=== PATIENT | male | born 1995 | race Caucasian/White ===

== ENCOUNTER 2016-11-06 18:47 | Emergency (ER) | payer MEDICAID ==
[~2016-11-06] VITALS: Ht 177.8 cm; Wt 89.8 kg
[~2016-11-06 18:47] MED LIST: ATIVAN0.5 MG PO; PREDNISONE1 MG PO
[2016-11-06 20:01] VITALS: BP 115/74
[2016-11-06] MEDS ORDERED: IBUPROFEN 800 MG TAB ONE (20:09)
[2016-11-06] MEDS ORDERED: ACETAMINOPHEN EXTRA STRENGTH 500 MG TAB ONE (20:10)
--- NOTE | 2016-11-06 21:12 | NUR ---
PT TAKEN TO BED 8
[2016-11-06] MEDS ORDERED: ONDANSETRON 4 MG ODT PO ONE (21:15)
--- NOTE | 2016-11-06 21:20 | NUR ---
PATIENT PRESENTS TO ED WITH ABD PAIN, HERNANDEZ, EARACHE, AND N/V/D . PT STATES HE HAS HAD THESE SYMPTOMS X2DAYS; HYPERACTIVE BOWEL SOUNDS NOTED IN ALL FOUR QUADRANTS. SKIN IS PINK/WARM/DRY; AAOX4 WITH EVEN AND STEADY GAIT; LUNGS CLEAR BL; HR EVEN AND REGULAR; PT DENIES ANY FEVER, CP, SOB, OR COUGH AT THIS TIME; PATIENT STATES PAIN OF 8/10 AT THIS TIME; VSS; PATIENT POSITIONED FOR COMFORT; HOB ELEVATED; BEDRAILS UP X2; BED DOWN. ER MD MADE AWARE OF PT STATUS.
[2016-11-06 22:17] VITALS: BP 118/67
--- NOTE | 2016-11-06 22:20 | NUR ---
Patient discharged with v/s stable. Written and verbal after care instructions given and explained. Patient alert, oriented and verbalized understanding of instructions. Ambulatory with steady gait. All questions addressed prior to discharge. ID band removed. Patient advised to follow up with PMD. Rx of ZOFRAN AND ACETAMENOPHEN given. Patient educated on indication of medication including possible reaction and side effects. Opportunity to ask questions provided and answered.
== END 2016-11-06 22:20 | disposition home or self-care (01) ==
LOC: MED 18:47
DX: R50.9 Fever, unspecified (principal); R11.2 Nausea with vomiting, unspecified; R19.7 Diarrhea, unspecified; F41.9 Anxiety disorder, unspecified
CPT/HCPCS: 99283; S0119